=== PATIENT | female | born 1960 | race Caucasian/White ===

== ENCOUNTER → 2016-11-13 | Outpatient (CLI) | payer BC ==
--- NOTE | 2016-11-13 20:36 | EKG REPORT ---
SEVERITY:- BORDERLINE ECG - SINUS RHYTHM BORDERLINE T ABNORMALITIES, DIFFUSE LEADS : Confirmed by: Mena Solis 13-Nov-2016 20:35:34
== END ==
LOC: OD 08:59
PROVIDERS: ATTEND Physician Assistant Surgical
DX: Z79.899 Other long term (current) drug therapy (principal)
CPT/HCPCS: 93005; 93010